=== PATIENT | female | born 1950 | race Caucasian/White ===

== ENCOUNTER 2016-08-14 07:43 | Day surgery (SDC) | payer OTHER, BC ==
[2016-08-13 13:28] VITALS: BMI 32.9
[2016-08-14 08:49] VITALS: TEMP 97.8
[2016-08-14] MEDS ORDERED: ACETAMINOPHEN 1000 MG/100 ML VIAL (NON FORMULARY) IVPB PRN (09:53)
[2016-08-14] MEDS ORDERED: LACTATED RINGERS SOLUTION 1,000 ML IV SCH (10:00)
--- NOTE | 2016-08-14 10:07 | HP ---
Satellite [facility] - Chief Complaint Chief Complaint: right hand pain, numbness, weakness History of Present Illness: right CTS History Source: Patient Limitations to Obtaining History: No Limitations - Past Medical History Allergies/Adverse Reactions: Allergies Allergy/AdvReac Type Severity Reaction Status Date / Time No Known Drug Allergies Allergy Verified 08/13/16 13:28 - Current Medications Current Medications: Home Medications Medication Instructions Recorded Atorvastatin Ca [Lipitor] 10 mg PO HS 08/13/16 Glimepiride 2 mg PO BID 08/13/16 Lenalidomide [Revlimid] 10 mg PO ASDIR 08/13/16 Metformin HCl [Metformin HCl ER] 1,000 mg PO BID 08/13/16 Sitagliptin Phosphate [Januvia] 100 mg PO DAILY 08/13/16 Satellite Physical Exam - Physical Examination Vital Signs: Vital Signs Period Temp Pulse Resp BP Sys/Cortes Pulse Ox Last 24 Hr 97.8 F-97.8 F 71-71 20-20 130-130/65-65 97 General Appearance: Well Nourished ENT: Clear Lung: Clear to auscultation Heart: Regular rate & rhythm Breasts: Soft Abdomen: Soft Extremities: No edema Satellite Impression/Plan - Impression/Plan Impression: right CTS Operative Procedure: right CTR, tenosynovectomy Date to be Performed: 08/14/16
--- NOTE | 2016-08-14 10:11 | OP ---
Operative Note - Note: Operative Date: 08/14/16 Pre-Operative Diagnosis: right CTS Operation: right CTR, tenosynovectomy Post-Operative Diagnosis: Same as Pre-op Surgeon: Deonte Sweet Anesthesiologist/DENTAL SURGEON: Rosemary Eduardo Anesthesia: General, Local Specimens Removed: tenosynovium Estimated Blood Loss (mls): 0 Drains, Volume Out (mls): 0 Blood Volume Replaced (mls): 0 Fluid Volume Replaced (mls): 500 Operative Report Dictated: Yes
[2016-08-14] MEDS ORDERED: PROPOFOL 20 ML ONE (10:19)
[2016-08-14] MEDS ORDERED: MIDAZOLAM HCL 2 MG/2 ML SINGLE DOSE VIAL ONE (10:19)
[2016-08-14] MEDS ORDERED: BUPIVACAINE HCL/PF 0.5% (5MG/ML) 10 ML VIAL ONE (10:36)
[2016-08-14] MEDS ORDERED: LIDOCAINE HCL 1%, 10 MG/ML (20ML VIAL) ONE (10:36)
[2016-08-14] MEDS ORDERED: ONDANSETRON 4 MG/2 ML VIAL IVPUSH PRN (10:38)
[2016-08-14] MEDS ORDERED: oxyCODONE HCL 5 MG TABLET PO PRN (10:40)
[2016-08-14] MEDS ORDERED: ceFAZolin SODIUM 1 GM VIAL ONE (10:48)
[2016-08-14] MEDS ORDERED: ceFAZolin SODIUM 1 GM VIAL IVPB ONE (10:49)
[2016-08-14] MEDS ORDERED: BUPIVACAINE HCL/PF 0.5% (5MG/ML) 10 ML VIAL IJ ONE (10:54)
[2016-08-14] MEDS ORDERED: LIDOCAINE HCL 1%, 10 MG/ML (20ML VIAL) IJ ONE (10:54)
[2016-08-14 12:51] VITALS: BP 143/70; PULSE 77
--- NOTE | 2016-08-15 07:54 | SPEC ---
DATE OF OPERATION: 08/14/2016 PREOPERATIVE DIAGNOSIS: Right carpal tunnel syndrome. POSTOPERATIVE DIAGNOSIS: Right carpal tunnel syndrome. OPERATION: Right carpal tunnel release and tenosynovectomy. SURGEON: Deonte Sweet M.D. FINANCIAL OPERATIONS CONSULTANT: Rosemary Eduardo CRNA ANESTHESIA: MAC, local injection with 12 mL of 0.5% Marcaine and 1% Lidocaine mix. DRAINS: None. COMPLICATIONS: None. BLOOD LOSS: None. BLOOD GIVEN: None. FLUID REPLACEMENT: 500 mL of PlasmaLyte. SPECIMEN: Tenosynovium right wrist. INDICATIONS: The patient is a 66-year-old female with a preoperative diagnosis of right carpal tunnel syndrome. She also has a small cervical compressive neuropathy. After understanding the potential risks, complications, alternatives and benefits of surgery versus nonsurgical treatment, the patient elected to undergo this procedure. DESCRIPTION OF PROCEDURE: The patient was brought to the operating room, peripheral IV placed and intravenous sedation was given. One gram of intravenous Ancef was given. MAC anesthesia was induced. A tourniquet was applied to the right upper arm and the right upper extremity was prepped and draped in sterile fashion. The entire case was done under 3.8 loupe magnification. A marking pen was utilized to ema out a longitudinal incision in an already existing skin crease. Twenty mL of 0.5% Marcaine mixed with 1% Lidocaine was injected in and around the surgical incision. The right upper extremity was elevated, exsanguinated with an Esmarch bandage and the tourniquet inflated to 250mm of mercury. A No. 15 scalpel blade was utilized to cut down through the skin. Subcutaneous hemostasis was achieved with the bipolar cautery. Dissection was done through the superficial palmar fascia. Self-retaining retractors were placed into the wound. Under direct visualization, the transverse carpal ligament was transected with a No. 15 scalpel blade, exposing the median nerve and the contents of the carpal tunnel. The distal and proximal extents of the release were completed with a Littler scissor and checked with irrigation and my small finger. They were seen to be complete. Limited dissection was done on the radial side of the median nerve and more extensive dissection was done on the ulnar side of the median nerve. The patients nerve was seen to be quite compressed by epineurium and therefore a limited epineurotomy was performed. A Ragnell retractor was used to gently retract the median nerve in a radial direction. The patient had a lot of tenosynovitis and therefore a limited tenosynovectomy was performed off multiple flexor tendons, at least three. This was passed off the field as tenosynovium right wrist. The floor of the carpal tunnel was checked. There were no abnormal masses or ganglion cysts. The area was copiously irrigated and washed out and closure begun. Undyed 4-0 Vicryl was used to close the deep dermal layer. Final skin reapproximation was done with horizontal mattress 4-0 nylon sutures. The area was then washed and dried, covered with Xeroform, 4x4s, fluffs between the fingers, Webril and a 4-inch plaster roll was utilized to make a volar splint, which was then wrapped with Elle and Coban. The tourniquet was taken down after a total tourniquet time of 10 minutes. There were no complications during the case. The patient tolerated the procedure well and was brought to the ambulatory recovery room in stable condition. Jeannie [id number]
--- NOTE | 2016-08-15 12:53 | PATH ---
Surgical Pathology Report Patient Name: MEGHAN URENA [facility]. Rec. #: [id number] /Age/Gender: 1950 (Age: 66) / F Account: [id number] Location: [facility] SURGICAL Taken: 08/14/2016 Received: 08/14/2016 Reported: 08/15/2016 Physicians: Deonte Sweet M.D. Specimen(s) Received TENOSYNOVIUM RIGHT HAND Clinical History Right carpal tunnel syndrome Final Diagnosis SOFT TISSUE, RIGHT HAND, TENOSYNOVIUM, CARPAL TUNNEL RELEASE: BENIGN TENOSYNOVIAL FIBROCONNECTIVE TISSUE WITH FOCAL MYXOID DEGENERATION. Comment: Reported history of myeloma is noted. Special stain for amyloid ([place] red) is pending; results will be reported in an addendum. Electronically Signed Chavo Dixon M.D. Addendum Reported: 08/18/2016 Addendum Diagnosis [place] red stain for amyloid performed and interpreted at [place], [place] ([id number]) is negative for amyloid. Geovany Orellana M.D. Gross Description Received in formalin labeled "tenosynovium right hand" is a 1.7 x 1.3 x 0.3 cm aggregate of zhao-yellow, irregular portions of soft tissue, consistent with tenosynovium. The specimen is entirely submitted in one cassette. /08/14/201608/14/2016
== END 2016-08-14 12:54 | disposition home or self-care (01) ==
LOC: JASU-SURG 07:43
PROVIDERS: ATTEND Orthopaedic Surgery
PROC: 0LB50ZZ Excision of Right Lower Arm and Wrist Tendon, Open Approach (ICD-10-PCS; 2016-08-14)
PROC: 01N50ZZ Release Median Nerve, Open Approach (ICD-10-PCS; principal; 2016-08-14 10:00)
DX: G56.01 Carpal tunnel syndrome, right upper limb (principal); M65.831 Other synovitis and tenosynovitis, right forearm
CPT/HCPCS: 88304-TC